=== PATIENT | female | born 1965 | race Two or more races ===

== ENCOUNTER 2024-06-06 09:47 | Emergency (ER) | payer OTHER ==
[~2024-06-06] VITALS: Ht 154.9 cm; Wt 63.5 kg
[2024-06-06] MEDS ORDERED: SYNTHROID125 MCG PO (10:23)
[2024-06-06] MEDS ORDERED: METHYLPREDNISOLONE SOD SUCC 125 MG VIAL IM STA (11:17)
== END 2024-06-06 11:29 | disposition home or self-care (01) ==
LOC: ER 09:49
DX: M79.602 Pain in left arm (principal); Z88.8 Allergy status to other drugs, medicaments and biological substances; Z91.013 Allergy to seafood